=== PATIENT | male | born 1975 | race Caucasian/White ===

== ENCOUNTER → 2017-11-21 | Outpatient (CLI) | payer OTHER ==
[~2017-11-21] MED LIST: CIPROFLOXACIN 400MG/D5W 200 ML IVPB
[2017-11-21 08:39] LABS: ADD MAN DIFF? NO
[2017-11-21 08:42] LABS: WHITE BLOOD COUNT 7.2 10^3/ul (4.8-10.8)
[2017-11-21 08:42] LABS: BASOPHILS % 0.3 % (0.0-2.0); EOSINOPHILS # 0.4 10^3/ul (0.0-0.5); EOSINOPHILS % 5.3 % (0.0-7.0); HEMATOCRIT 38.6 % (42.0-52.0); HEMOGLOBIN 13.9 g/dl (14.0-18.0); LYMPHOCYTES # 2.6 10^3/ul (0.8-2.9); LYMPHOCYTES % 36.5 % (15.0-51.0); MEAN CORPUSCULAR HEMOGLOBIN 32.2 pg (29.0-33.0); MEAN CORPUSCULAR VOLUME 89.4 fl (82.0-101.0); MEAN PLATELET VOLUME 9.6 fl (7.4-10.4); MONOCYTE # 0.6 10^3/ul (0.3-0.9); MONOCYTES % 7.6 % (0.0-11.0); NEUTROPHIL # 3.6 10^3/ul (1.6-7.5); PLATELET COUNT 174 10^3/UL (140-415); RED BLOOD COUNT 4.32 10^6/ul (4.70-6.10); RED CELL DISTRIBUTION WIDTH 11.3 % (11.5-14.5)
[2017-11-21 09:09] LABS: INR 0.96; PROTIME 12.9 Sec (11.9-14.9)
[2017-11-21 09:10] LABS: PARTIAL THROMBOPLASTIN TIME 33.9 Sec (25.0-35.0)
[2017-11-21 09:17] LABS: ANION GAP 16 (8-16); CARBON DIOXIDE 26 mmol/L (21-31); CHLORIDE 104 mmol/L (97-110); GLUCOSE 187 mg/dl (70-220)
[2017-11-21 09:19] LABS: BLOOD UREA NITROGEN 13 mg/dl (7-20); CALCIUM 9.2 mg/dl (8.4-10.2); CREATININE 0.85 mg/dl (0.61-1.24); POTASSIUM 4.2 mmol/L (3.5-5.1); SODIUM 142 mmol/L (135-144)
[2017-11-21] MEDS: CEFTRIAXONE 1 GM/50 ML (PMX) 50 ML IVPB (09:24)
== END | disposition home or self-care (01) ==
LOC: SDS 07:17 → LAB 08:00
DX: N35.9 Urethral stricture, unspecified (principal); Z53.9 Procedure and treatment not carried out, unspecified reason; E11.9 Type 2 diabetes mellitus without complications
CPT/HCPCS: 80048; 82962; 85025; 85610; 85730

== ENCOUNTER 2018-05-08 06:01 | Day surgery (SDC) | payer OTHER ==
[~2018-05-08 06:01] MED LIST changes: +CIPROFLOXACIN 400 MG in D5W 200 ML IVPB; -CIPROFLOXACIN 400MG/D5W 200 ML IVPB
[2018-05-08] MEDS ORDERED: ROCURONIUM 50 MG INJ (06:23)
[2018-05-08] MEDS ORDERED: LIDOCAINE 2% (SDV) 5 ML INJ (06:23)
[2018-05-08] MEDS ORDERED: PROPOFOL 20 ML (06:23)
[2018-05-08] MEDS ORDERED: MIDAZOLAM 1 MG/ML 2 ML INJ (06:23)
[2018-05-08] MEDS ORDERED: NEOSTIGMINE 3 MG/3 ML SYRINGE (06:23)
[2018-05-08] MEDS ORDERED: GLYCOPYRROLATE 0.4 MG INJ (06:23)
[2018-05-08] MEDS ORDERED: FENTAnyl 50 MCG/ML VIAL ×2 (06:23→09:10)
[2018-05-08] MEDS ORDERED: DEXAMETHASONE 4 MG/ML 1 ML INJ (06:24)
[2018-05-08] MEDS ORDERED: ONDANSETRON 4 MG INJ ×2 (06:24→09:10)
[2018-05-08] MEDS ORDERED: CEFAZOLIN 1 GM INJ (07:00)
[2018-05-08] MEDS ORDERED: CIPRO 400 MG/200 ML D5W IVPB (07:00)
[2018-05-08] MEDS ORDERED: SUCCINYLCHOLINE CHLORIDE 100 MG/5 ML SYG IV (07:37)
[2018-05-08] MEDS: IOHEXOL 300MG/ML 30 ML BTL (08:17)
[2018-05-08] MEDS ORDERED: FLUMAZENIL 0.5 MG INJ (08:30)
[2018-05-08] MEDS: ONDANSETRON 4 MG INJ IV (09:23)
[2018-05-08] MEDS: FENTAnyl 50 MCG/ML VIAL IV (09:23)
[2018-05-08] MEDS ORDERED: MEPERIDINE 25 MG INJ IV (09:30)
[2018-05-08] MEDS ORDERED: HYDROmorphONE 1 MG/5 ML IV SYRINGE IV ×2 (09:30)
[2018-05-08] MEDS ORDERED: FENTAnyl 50 MCG/ML VIAL IV (09:30)
[2018-05-08] MEDS: BELLADONNA ALK/OPIUM SUPP PR (09:47)
[2018-05-08] MEDS: HYDROCODONE/APAP (5/325) TAB PO (10:48)
[2018-05-08] MEDS ORDERED: PHENAZOPYRIDINE 100 MG TAB PO (13:00)
== END 2018-05-08 11:20 | disposition home or self-care (01) ==
LOC: SDS 06:01
DX: N35.819 Other urethral stricture, male, unspecified site (principal)
CPT/HCPCS: 52275; 74430